=== PATIENT | female | born 1970 | race Caucasian/White ===

== ENCOUNTER 2024-08-19 15:28 | Emergency (ER) | payer MEDICAID ==
[~2024-08-19] VITALS: Ht 160 cm; Wt 64.0 kg
[2024-08-19 15:52] VITALS: O2SAT 99
[2024-08-19] MEDS: SODIUM CHLORIDE 0.9% 1,000 ML IV ONE (17:10)
[2024-08-19] MEDS: KETOROLAC 30MG/ML VIAL IV ONE (17:15)
[2024-08-19 17:16] LABS: POTASSIUM 3.9 mEq/L (3.5-5.1)
[2024-08-19 17:17] LABS: CALCIUM 9.2 mg/dL (8.7-10.4)
[2024-08-19 17:22] LABS: BASOPHILS % 0.5 % (0.0-2.0); EOSINOPHILS % 2.8 % (0.0-5.0); HEMATOCRIT. 35.4 % (36.0-48.0); HEMOGLOBIN. 11.4 g/dL (12.0-16.0); LYMPHOCYTES % 37.8 % (20.0-50.0); MEAN CORPUSCULAR HEMOGLOBIN 28.6 pg (28.0-32.0); MEAN CORPUSCULAR HGB CONC 32.2 g/dL (31.0-37.0); MEAN CORPUSCULAR VOLUME 88.9 fL (81.0-99.0); MEAN PLATELET VOLUME 8.5 fl (7.4-10.4); MONOCYTES % 9.3 % (2.0-8.0); NEUTROPHILS % 49.6 % (40.0-76.0); PLATELET 272 x1000/uL (130-400); RED BLOOD CELL COUNT 3.99 mill/uL (4.2-5.4); RED CELL DISTRIBUTION WIDTH 16.1 % (11.6-14.6); WHITE BLOOD COUNT 6.9 x1000/uL (4.5-11.0)
[2024-08-19] MEDS: PROCHLORPERAZINE 10MG/2ML VIAL IV STA (17:41)
[2024-08-19 18:56] LABS: CLARITY URINE CLEAR (CLEAR); COLOR URINE YELLOW (YELLOW); GLUCOSE URINE NEGATIVE (NEGATIVE); KETONES URINE NEGATIVE (NEGATIVE); LEUKOCYTE ESTERASE URINE NEGATIVE (NEGATIVE); NITRITE URINE NEGATIVE (NEGATIVE); OCCULT BLOOD URINE NEGATIVE (NEGATIVE); PROTEIN URINE NEGATIVE (NEGATIVE); SPECIFIC GRAVITY URINE 1.017 (1.005-1.030); UROBILINOGEN URINE 0.2 E.U./dL (0.2-1.0)
[2024-08-19 19:00] VITALS: BP 142/83; PULSE 86; RESP 16; TEMP 37.00296; O2SAT 100
[2024-08-19] MEDS ORDERED: CYCL10TA21 MT (19:01)
[2024-08-19] MEDS ORDERED: IBUP-2029 MT (19:01)
== END 2024-08-19 19:59 | disposition home or self-care (01) ==
LOC: ER 15:28
DX: S06.0XAA Concussion with loss of consciousness status unknown, initial encounter (principal); M54.50 Low back pain, unspecified; E05.00 Thyrotoxicosis with diffuse goiter without thyrotoxic crisis or storm; I10 Essential (primary) hypertension; Z88.0 Allergy status to penicillin; Z88.8 Allergy status to other drugs, medicaments and biological substances; Z98.890 Other specified postprocedural states; Y08.89XA Assault by other specified means, initial encounter; Y93.89 Activity, other specified; Y92.89 Other specified places as the place of occurrence of the external cause; Y99.8 Other external cause status
CPT/HCPCS: 80048; 81003; 85025; 36415; 93005; 96361; 96374; 96375; 99284; J1885; J0780; J7030; Z7610 ×2